=== PATIENT | male | born 1955 | race American Indian/Alaskan Native ===

== ENCOUNTER 2017-07-09 18:08 | Inpatient (IN) | payer OTHER, MEDICAID ==
[~2017-07-09] VITALS: Ht 162.6 cm; Wt 80.5 kg
[2017-07-09 21:30] VITALS: BP 114/83
[2017-07-09] MEDS ORDERED: acetaminophen 325mg tablet PO PRN (22:50)
[2017-07-09] MEDS ORDERED: magnesium hydroxide 30ml (MOM) UD suspension PO PRN (22:50)
[2017-07-09] MEDS ORDERED: mag hydrox/Alum hydrox/simeth 30ml oral suspension PO PRN (22:50)
[2017-07-09] MEDS ORDERED: ondansetron/PF 4mg/2ml inj IV PRN (22:50)
[2017-07-09 23:00] VITALS: BP 121/79
[2017-07-09] MEDS: normal saline 1000ml 1,000 ML IV SCH (23:27)
[2017-07-09] MEDS ORDERED: OMEP20CA10 PO (23:40)
[2017-07-09] MEDS ORDERED: ALBU18HF2 INH (23:40)
[2017-07-09] MEDS ORDERED: HYDR12.5 PO (23:40)
[2017-07-09] MEDS ORDERED: LISI10TA4 PO (23:40)
[2017-07-09] MEDS ORDERED: LEVO25TA7 PO (23:40)
[2017-07-10] MEDS ORDERED: HYDROmorphone 2mg/ml vial IV PRN (00:44)
[2017-07-10 03:17] VITALS: BP 114/73
[2017-07-10 06:00] VITALS: BP 112/72
[2017-07-10 06:18] LABS: BASOPHILS # (AUTO) 0.1 X10'3 (0-0.2); BASOPHILS % (AUTO) 0.4 % (0-1); EOSINOPHILS # (AUTO) 0.6 X10'3 (0-0.9); EOSINOPHILS % (AUTO) 4.7 % (0-6); HEMOGLOBIN 15.3 g/dl (14.0-17.9); LYMPHOCYTES # (AUTO) 1.7 X10'3 (1.1-4.8); LYMPHOCYTES % (AUTO) 13.9 % (21-51); MEAN CORPUSCULAR HEMOGLOBIN 31.4 PG (27.0-31.0); MEAN CORPUSCULAR HGB CONC 34.8 % (33.0-36.5); MEAN CORPUSCULAR VOLUME 90.1 FL (78-98); MEAN PLATELET VOLUME 6.2 FL (7.4-10.4); MONOCYTES # (AUTO) 1.9 X10'3 (0-0.9); MONOCYTES % (AUTO) 15.5 % (2-12); NEUTROPHILS # (AUTO) 8.2 X10'3 (1.8-7.7); NEUTROPHILS % (AUTO) 65.5 % (42-75); PLATELET COUNT 483 X10'3 (140-440); RED BLOOD COUNT 4.88 X10'6 (4.70-6.10); RED CELL DISTRIBUTION WIDTH 12.5 % (11.5-14.5); WHITE BLOOD COUNT 12.5 X10'3 (4.5-11.0)
[2017-07-10 06:33] LABS: ALANINE AMINOTRANSFERASE 20 U/L (12-78); ALBUMIN 2.5 G/DL (3.4-5.0); ALBUMIN/GLOBULIN RATIO 0.7 (1.1-1.5); ALKALINE PHOSPHATASE 87 IU/L (46-116); ASPARTATE AMINO TRANSFERASE 13 U/L (10-37); BILIRUBIN,TOTAL 0.3 MG/DL (0.1-1.0); BLOOD UREA NITROGEN 17 MG/DL (7-18); BUN/CREATININE RATIO 15.5 (5.4-32.0); CALCIUM 8.9 MG/DL (8.5-10.1); GLUCOSE 103 MG/DL (70-104); TOTAL PROTEIN 6.1 G/DL (6.4-8.2); eGFR 67 ML/MIN
[2017-07-10 07:18] LABS: ANION GAP 7 (8-16); CHLORIDE 104 MMOL/L (99-107); POTASSIUM 3.7 MMOL/L (3.5-5.1); SODIUM 138 MMOL/L (135-145)
[2017-07-10] MEDS ORDERED: heparin, porcine 5000 units/ml vial SQ SCH (08:00)
[2017-07-10] MEDS ORDERED: pneumococcal 23-VAL P-sac vacc 25 mcg/0.5ml vial IMVAC ONE (10:00)
[2017-07-10] MEDS ORDERED: FLU VACC QS2017-18 36MOS UP/PF 60 MCG/0.5 ML SYRINGE IMVAC ONE (10:00)
[2017-07-10] MEDS: normal saline 1000ml 1,000 ML IV SCH ×2 (10:53→18:46)
[2017-07-10 11:50] LABS: HEMATOCRIT 44.2 % (42.0-52.0); HEMOGLOBIN 15.4 g/dl (14.0-17.9); MEAN CORPUSCULAR HEMOGLOBIN 31.3 PG (27.0-31.0); MEAN CORPUSCULAR HGB CONC 34.8 % (33.0-36.5); MEAN CORPUSCULAR VOLUME 90.1 FL (78-98); MEAN PLATELET VOLUME 6.1 FL (7.4-10.4); PLATELET COUNT 478 X10'3 (140-440); RED BLOOD COUNT 4.91 X10'6 (4.70-6.10); RED CELL DISTRIBUTION WIDTH 12.5 % (11.5-14.5); WHITE BLOOD COUNT 12.5 X10'3 (4.5-11.0)
[2017-07-10 12:00] LABS: ALBUMIN 2.5 G/DL (3.4-5.0); ANION GAP 4 (8-16); BLOOD UREA NITROGEN 15 MG/DL (7-18); BUN/CREATININE RATIO 16.7 (5.4-32.0); CALCIUM 8.9 MG/DL (8.5-10.1); CHLORIDE 105 MMOL/L (99-107); GLUCOSE 101 MG/DL (70-104); POTASSIUM 3.8 MMOL/L (3.5-5.1); SODIUM 137 MMOL/L (135-145); TOTAL CARBON DIOXIDE 27.8 MMOL/L (24-32); eGFR 85 ML/MIN
[2017-07-10 12:01] LABS: PARTIAL THROMBOPLASTIN TIME 32 SECONDS (22-32); PROTHROMBIN TIME 10.7 SECONDS (9.0-12.0)
[2017-07-10 12:13] LABS: HEMOGLOBIN A1C 5.6 % (4.5-6.2)
[2017-07-10 12:52] LABS: CLARITY,URINE Clear (Clear); COLOR,URINE Yellow (Yellow); GLUCOSE, URINE Negative (Neg); KETONES,URINE Negative (Neg); LEUKOCYTE ESTERASE ,URINE Negative (Neg); NITRITES, URINE Negative (Neg); OCCULT BLOOD,URINE Negative (Neg); PROTEIN,URINE Negative (Neg)
[2017-07-10] MEDS ORDERED: iohexol 300mg/ml 100ml inj. ONE (12:52)
[2017-07-10 12:53] LABS: UA COLLECTION TYPE CLN CATCH MIDSTREAM
[2017-07-10] MEDS ORDERED: non-formulary drug (Albuterol Sulfate (Ventolin Hfa) 2 PUFFS) INH PRN (14:30)
[2017-07-10 14:34] VITALS: BP 113/72
[2017-07-10] MEDS ORDERED: ALBU18HF2 INH (14:34)
[2017-07-10] MEDS ORDERED: LEVO25TA2 PO (14:34)
[2017-07-10] MEDS ORDERED: OMEP20CA10 PO (14:34)
[2017-07-10] MEDS ORDERED: LISI10TA4 PO (14:34)
[2017-07-10] MEDS ORDERED: HYDR12.5 PO (14:34)
[2017-07-10] MEDS ORDERED: albuterol 2.5 MG/3 ML nebule NEB PRN (14:55)
[2017-07-10 15:00] VITALS: BP 104/67
[2017-07-10 16:46] LABS: ABG BASE EXCESS 2.4 mmol/L (-2.0-3.0); ABG HCO3 25.8 mmol/L (22.0-26.0); ABG OXYGEN SATURATION 95.4 % (95-98); ABG PCO2 (T) 36.4 mmHg (35.0-48.0); ABG PH (T) 7.469 (7.350-7.450); ABG PO2 (T) 68.1 mmHg (83-108); ALLEN'S TEST Positive; FCOHb 0.1 % (0.5-1.5); FMetHb 0.2 % (0.3-1.12); FO2Hb 95.1 % (94-100); TOTAL HEMOGLOBIN 15.6 G/dl (14.0-18.0)
[2017-07-10 19:00] VITALS: BP 118/77
[2017-07-10] MEDS: mupirocin 2% ointment 22GM NS SCH (20:00)
[2017-07-10 23:00] VITALS: BP 108/70
[2017-07-11] VITALS (17 sets, daily range): BP systolic 112–152; BP diastolic 66–95
[2017-07-11] MEDS ORDERED: cefazolin/dext.iso 2gm/50ml 50 ML IV ONE (05:00)
[2017-07-11] MEDS ORDERED: MESSAGE TO NURSING PO ONE ×5 (05:30→10:00)
[2017-07-11 05:48] LABS: BASOPHILS # (AUTO) 0.1 X10'3 (0-0.2); BASOPHILS % (AUTO) 0.7 % (0-1); EOSINOPHILS # (AUTO) 0.6 X10'3 (0-0.9); EOSINOPHILS % (AUTO) 5.6 % (0-6); HEMATOCRIT 45.1 % (42.0-52.0); HEMOGLOBIN 15.6 g/dl (14.0-17.9); LYMPHOCYTES # (AUTO) 1.9 X10'3 (1.1-4.8); LYMPHOCYTES % (AUTO) 16.2 % (21-51); MEAN CORPUSCULAR HEMOGLOBIN 31.1 PG (27.0-31.0); MEAN CORPUSCULAR HGB CONC 34.5 % (33.0-36.5); MEAN CORPUSCULAR VOLUME 90.1 FL (78-98); MEAN PLATELET VOLUME 6.2 FL (7.4-10.4); MONOCYTES # (AUTO) 1.7 X10'3 (0-0.9); MONOCYTES % (AUTO) 14.7 % (2-12); NEUTROPHILS # (AUTO) 7.3 X10'3 (1.8-7.7); NEUTROPHILS % (AUTO) 62.8 % (42-75); PLATELET COUNT 475 X10'3 (140-440); RED CELL DISTRIBUTION WIDTH 12.5 % (11.5-14.5); WHITE BLOOD COUNT 11.6 X10'3 (4.5-11.0)
[2017-07-11] MEDS ORDERED: famotidine/PF 10 mg/ml inj IV ONE (06:30)
[2017-07-11 06:39] LABS: ALANINE AMINOTRANSFERASE 24 U/L (12-78); ALBUMIN 2.5 G/DL (3.4-5.0); ALBUMIN/GLOBULIN RATIO 0.7 (1.1-1.5); ALKALINE PHOSPHATASE 84 IU/L (46-116); ANION GAP 10 (8-16); ASPARTATE AMINO TRANSFERASE 24 U/L (10-37); BILIRUBIN,TOTAL 0.4 MG/DL (0.1-1.0); BLOOD UREA NITROGEN 13 MG/DL (7-18); CHLORIDE 106 MMOL/L (99-107); GLUCOSE 95 MG/DL (70-104); POTASSIUM 3.8 MMOL/L (3.5-5.1); SODIUM 142 MMOL/L (135-145); TOTAL CARBON DIOXIDE 25.8 MMOL/L (24-32); TOTAL PROTEIN 6.2 G/DL (6.4-8.2); eGFR 75 ML/MIN
[2017-07-11] MEDS: mupirocin 2% ointment 22GM NS SCH (07:00)
[2017-07-11] MEDS ORDERED: BUPIVAcaine/PF 2.5 mg/ml (0.25%) 30ml vial ONE (07:07)
[2017-07-11] MEDS ORDERED: fentaNYL/PF 50MCG/1 ML 2ML syringe ONE ×2 (07:09→07:12)
[2017-07-11] MEDS ORDERED: midazolam 2 mg/2 ml injection ONE (07:10)
[2017-07-11] MEDS ORDERED: LIDOcaine 2% (20mg/ml) 5ml vial ONE ×2 (07:12→07:14)
[2017-07-11] MEDS ORDERED: propofol inj 20 ML IV ONE ×2 (07:12→07:14)
[2017-07-11] MEDS ORDERED: rocuronium 10mg/ml inj IV ONE (07:14)
[2017-07-11] MEDS ORDERED: ondansetron/PF 4mg/2ml inj IV PRN ×2 (07:20→09:40)
[2017-07-11] MEDS ORDERED: meperidine/PF 25mg/ml syringe IV PRN ×3 (07:20)
[2017-07-11] MEDS ORDERED: proCHLORperazine 10 MG/2 ml inj IV PRN (07:20)
[2017-07-11] MEDS ORDERED: ringers solution, lacted 1,000 ML IV SCH (07:20)
[2017-07-11] MEDS ORDERED: morphine 2 MG/ML inj. syringe IV PRN ×4 (07:20→09:40)
[2017-07-11] MEDS: pantoprazole 40mg Tablet.DR PO SCH (07:30)
[2017-07-11] MEDS ORDERED: sevoflurane 250ml liquid IH ONE (07:49)
[2017-07-11] MEDS ORDERED: non-formulary drug (Omeprazole 1 CAP) PO SCH (08:00)
[2017-07-11] MEDS: lisinopril 10 MG tablet PO SCH (08:00)
[2017-07-11] MEDS ORDERED: naloxone 0.4 mg/ml inj IV PRN (09:40)
[2017-07-11] MEDS ORDERED: magnesium hydroxide 30ml (MOM) UD suspension PO PRN (09:40)
[2017-07-11] MEDS ORDERED: albuterol 2.5 MG/3 ML nebule NEB PRN (09:40)
[2017-07-11] MEDS ORDERED: HYDROcodone/acetaminophen 10/325mg tab PO PRN (09:40)
[2017-07-11] MEDS ORDERED: metoclopramide 5 mg/ml inj IV PRN (09:40)
[2017-07-11] MEDS ORDERED: neostigmine methylsulfate 1 MG/ML 10ml vial ONE (10:18)
[2017-07-11] MEDS ORDERED: glycopyrrolate 0.2mg/ml inj ONE (10:18)
[2017-07-11] MEDS ORDERED: ondansetron/PF 4mg/2ml inj ONE (10:18)
[2017-07-11] MEDS ORDERED: dexamethasone sod phosphate 4mg/ml inj. ONE (10:18)
[2017-07-11] MEDS: HYDROchlorothiazide 12.5mg capsule PO SCH (10:52)
[2017-07-11] MEDS: levoTHYROXINE 25mcg tablet PO SCH (10:52)
[2017-07-11 11:13] LABS: BASOPHILS # (AUTO) 0.1 X10'3 (0-0.2); BASOPHILS % (AUTO) 0.6 % (0-1); EOSINOPHILS # (AUTO) 0.4 X10'3 (0-0.9); EOSINOPHILS % (AUTO) 3.6 % (0-6); HEMATOCRIT 44.5 % (42.0-52.0); HEMOGLOBIN 15.5 g/dl (14.0-17.9); LYMPHOCYTES % (AUTO) 8.9 % (21-51); MEAN CORPUSCULAR HEMOGLOBIN 31.4 PG (27.0-31.0); MEAN CORPUSCULAR HGB CONC 34.8 % (33.0-36.5); MEAN PLATELET VOLUME 5.8 FL (7.4-10.4); MONOCYTES # (AUTO) 0.7 X10'3 (0-0.9); MONOCYTES % (AUTO) 6.5 % (2-12); NEUTROPHILS # (AUTO) 8.9 X10'3 (1.8-7.7); NEUTROPHILS % (AUTO) 80.4 % (42-75); PLATELET COUNT 487 X10'3 (140-440); RED BLOOD COUNT 4.95 X10'6 (4.70-6.10); RED CELL DISTRIBUTION WIDTH 12.5 % (11.5-14.5)
[2017-07-11 11:22] LABS: ALBUMIN 2.3 G/DL (3.4-5.0); ANION GAP 9 (8-16); BLOOD UREA NITROGEN 12 MG/DL (7-18); CALCIUM 8.5 MG/DL (8.5-10.1); CHLORIDE 108 MMOL/L (99-107); GLUCOSE 112 MG/DL (70-104); POTASSIUM 4.1 MMOL/L (3.5-5.1); SODIUM 143 MMOL/L (135-145); TOTAL CARBON DIOXIDE 26.1 MMOL/L (24-32); eGFR 75 ML/MIN
[2017-07-11] MEDS: ketorolac tromethamine 15mg/ml inj. IV SCH ×2 (13:37→21:13)
[2017-07-11] MEDS: cefazolin 1gm/NS 100mL 100 ML IV SCH (15:46)
[2017-07-11] MEDS: docusate sod 100mg capsule PO SCH (21:13)
[2017-07-12] MEDS: cefazolin 1gm/NS 100mL 100 ML IV SCH (00:19)
[2017-07-12] MEDS: ketorolac tromethamine 15mg/ml inj. IV SCH ×2 (02:32→07:47)
[2017-07-12 03:00] VITALS: BP 114/78
[2017-07-12 05:02] LABS: BASOPHILS # (AUTO) 0.1 X10'3 (0-0.2); BASOPHILS % (AUTO) 0.3 % (0-1); EOSINOPHILS # (AUTO) 0.3 X10'3 (0-0.9); HEMOGLOBIN 13.4 g/dl (14.0-17.9); LYMPHOCYTES # (AUTO) 1.2 X10'3 (1.1-4.8); LYMPHOCYTES % (AUTO) 7.1 % (21-51); MEAN CORPUSCULAR HEMOGLOBIN 31.3 PG (27.0-31.0); MEAN CORPUSCULAR HGB CONC 35.4 % (33.0-36.5); MEAN CORPUSCULAR VOLUME 88.6 FL (78-98); MEAN PLATELET VOLUME 5.9 FL (7.4-10.4); MONOCYTES # (AUTO) 2.3 X10'3 (0-0.9); MONOCYTES % (AUTO) 13.6 % (2-12); NEUTROPHILS # (AUTO) 12.8 X10'3 (1.8-7.7); PLATELET COUNT 442 X10'3 (140-440); RED BLOOD COUNT 4.29 X10'6 (4.70-6.10); RED CELL DISTRIBUTION WIDTH 12.3 % (11.5-14.5); WHITE BLOOD COUNT 16.6 X10'3 (4.5-11.0)
[2017-07-12 05:21] LABS: ALANINE AMINOTRANSFERASE 27 U/L (12-78); ALBUMIN 2.1 G/DL (3.4-5.0); ALBUMIN/GLOBULIN RATIO 0.7 (1.1-1.5); ALKALINE PHOSPHATASE 72 IU/L (46-116); ANION GAP 8 (8-16); ASPARTATE AMINO TRANSFERASE 20 U/L (10-37); BILIRUBIN,TOTAL 0.3 MG/DL (0.1-1.0); BLOOD UREA NITROGEN 16 MG/DL (7-18); BUN/CREATININE RATIO 11.4 (5.4-32.0); CALCIUM 8.1 MG/DL (8.5-10.1); CHLORIDE 104 MMOL/L (99-107); GLUCOSE 114 MG/DL (70-104); POTASSIUM 3.9 MMOL/L (3.5-5.1); SODIUM 138 MMOL/L (135-145); TOTAL CARBON DIOXIDE 26.5 MMOL/L (24-32); TOTAL PROTEIN 5.3 G/DL (6.4-8.2); eGFR 51 ML/MIN
[2017-07-12 06:00] VITALS: BP 115/71
[2017-07-12] MEDS: lisinopril 10 MG tablet PO SCH (07:47)
[2017-07-12] MEDS: docusate sod 100mg capsule PO SCH ×2 (07:48→20:00)
[2017-07-12] MEDS: pantoprazole 40mg Tablet.DR PO SCH (07:48)
[2017-07-12] MEDS: HYDROchlorothiazide 12.5mg capsule PO SCH (07:48)
[2017-07-12] MEDS: levoTHYROXINE 25mcg tablet PO SCH (07:48)
[2017-07-12] MEDS ORDERED: CefTRIAXone/D5W-Rocephin 1gm 50 ML IV SCH (08:00)
[2017-07-12] MEDS: normal saline 1000ml 1,000 ML IV SCH ×2 (09:33→17:50)
[2017-07-12] MEDS ORDERED: HYDROcodone/acetaminophen 5mg/325mg tablet PO PRN (10:05)
[2017-07-12 10:40] LABS: ALBUMIN 2.3 G/DL (3.4-5.0); ANION GAP 7 (8-16); BLOOD UREA NITROGEN 16 MG/DL (7-18); BUN/CREATININE RATIO 13.3 (5.4-32.0); CALCIUM 8.7 MG/DL (8.5-10.1); CHLORIDE 104 MMOL/L (99-107); GLUCOSE 107 MG/DL (70-104); SODIUM 139 MMOL/L (135-145); TOTAL CARBON DIOXIDE 27.9 MMOL/L (24-32); eGFR 61 ML/MIN
[2017-07-12 11:00] VITALS: BP 106/66
[2017-07-12] MEDS: cefTRIAXone 1g/NS 100ml IVPB 100 ML IV SCH (11:13)
[2017-07-12] MEDS: HYDROcodone/acetaminophen 10/325mg tab PO PRN (16:00)
[2017-07-12] MEDS: lactobacillus rhamnosus 10,000 MMU CELLS/CAPSULE PO SCH (17:47)
[2017-07-12 19:00] VITALS: BP 114/77
[2017-07-12 23:00] VITALS: BP 103/70
[2017-07-13] MEDS: HYDROcodone/acetaminophen 10/325mg tab PO PRN (02:32)
[2017-07-13] MEDS: normal saline 1000ml 1,000 ML IV SCH ×3 (02:33→22:38)
[2017-07-13 03:42] VITALS: BP 137/95
[2017-07-13 05:46] LABS: BASOPHILS # (AUTO) 0.1 X10'3 (0-0.2); BASOPHILS % (AUTO) 0.6 % (0-1); EOSINOPHILS # (AUTO) 0.5 X10'3 (0-0.9); EOSINOPHILS % (AUTO) 3.9 % (0-6); HEMATOCRIT 40.4 % (42.0-52.0); HEMOGLOBIN 14.2 g/dl (14.0-17.9); LYMPHOCYTES # (AUTO) 1.2 X10'3 (1.1-4.8); LYMPHOCYTES % (AUTO) 9.5 % (21-51); MEAN CORPUSCULAR HEMOGLOBIN 31.4 PG (27.0-31.0); MEAN CORPUSCULAR HGB CONC 35.1 % (33.0-36.5); MEAN CORPUSCULAR VOLUME 89.6 FL (78-98); MEAN PLATELET VOLUME 6.3 FL (7.4-10.4); NEUTROPHILS # (AUTO) 9.3 X10'3 (1.8-7.7); PLATELET COUNT 431 X10'3 (140-440); RED BLOOD COUNT 4.51 X10'6 (4.70-6.10); RED CELL DISTRIBUTION WIDTH 12.5 % (11.5-14.5); WHITE BLOOD COUNT 13.1 X10'3 (4.5-11.0)
[2017-07-13 05:52] LABS: ALANINE AMINOTRANSFERASE 33 U/L (12-78); ALBUMIN 2.2 G/DL (3.4-5.0); ALBUMIN/GLOBULIN RATIO 0.7 (1.1-1.5); ALKALINE PHOSPHATASE 77 IU/L (46-116); ANION GAP 7 (8-16); ASPARTATE AMINO TRANSFERASE 26 U/L (10-37); BILIRUBIN,TOTAL 0.3 MG/DL (0.1-1.0); BLOOD UREA NITROGEN 16 MG/DL (7-18); BUN/CREATININE RATIO 14.5 (5.4-32.0); CALCIUM 8.5 MG/DL (8.5-10.1); CHLORIDE 107 MMOL/L (99-107); GLUCOSE 103 MG/DL (70-104); POTASSIUM 4.2 MMOL/L (3.5-5.1); SODIUM 142 MMOL/L (135-145); TOTAL CARBON DIOXIDE 27.9 MMOL/L (24-32); TOTAL PROTEIN 5.5 G/DL (6.4-8.2); eGFR 67 ML/MIN
[2017-07-13 07:00] VITALS: BP 122/87
[2017-07-13] MEDS: cefTRIAXone 1g/NS 100ml IVPB 100 ML IV SCH (08:38)
[2017-07-13] MEDS: lisinopril 10 MG tablet PO SCH (08:38)
[2017-07-13] MEDS: pantoprazole 40mg Tablet.DR PO SCH (08:39)
[2017-07-13] MEDS: levoTHYROXINE 25mcg tablet PO SCH (08:39)
[2017-07-13] MEDS: lactobacillus rhamnosus 10,000 MMU CELLS/CAPSULE PO SCH ×2 (08:39→17:27)
[2017-07-13] MEDS: docusate sod 100mg capsule PO SCH ×2 (08:42→19:59)
[2017-07-13] MEDS ORDERED: FLU VACC QS2017-18 36MOS UP/PF 60 MCG/0.5 ML SYRINGE IMVAC ONE (10:00)
[2017-07-13] MEDS ORDERED: pneumococcal 23-VAL P-sac vacc 25 mcg/0.5ml vial IMVAC ONE (10:00)
[2017-07-13 11:00] VITALS: BP 121/81
[2017-07-13 15:00] VITALS: BP 130/84
[2017-07-13 18:30] VITALS: BP 147/88
[2017-07-13 22:00] VITALS: BP 149/95
[2017-07-14] VITALS (7 sets, daily range): BP systolic 132–150; BP diastolic 83–98
[2017-07-14 06:53] LABS: BASOPHILS # (AUTO) 0.1 X10'3 (0-0.2); BASOPHILS % (AUTO) 0.6 % (0-1); EOSINOPHILS # (AUTO) 0.5 X10'3 (0-0.9); EOSINOPHILS % (AUTO) 3.7 % (0-6); HEMATOCRIT 44.5 % (42.0-52.0); HEMOGLOBIN 15.5 g/dl (14.0-17.9); LYMPHOCYTES # (AUTO) 1.6 X10'3 (1.1-4.8); LYMPHOCYTES % (AUTO) 11.9 % (21-51); MEAN CORPUSCULAR HEMOGLOBIN 31.3 PG (27.0-31.0); MEAN CORPUSCULAR HGB CONC 34.9 % (33.0-36.5); MEAN CORPUSCULAR VOLUME 89.8 FL (78-98); MONOCYTES # (AUTO) 2.1 X10'3 (0-0.9); MONOCYTES % (AUTO) 15.3 % (2-12); NEUTROPHILS # (AUTO) 9.3 X10'3 (1.8-7.7); NEUTROPHILS % (AUTO) 68.5 % (42-75); PLATELET COUNT 506 X10'3 (140-440); RED BLOOD COUNT 4.95 X10'6 (4.70-6.10); RED CELL DISTRIBUTION WIDTH 12.3 % (11.5-14.5); WHITE BLOOD COUNT 13.6 X10'3 (4.5-11.0)
[2017-07-14 07:11] LABS: ALANINE AMINOTRANSFERASE 34 U/L (12-78); ALBUMIN 2.5 G/DL (3.4-5.0); ALBUMIN/GLOBULIN RATIO 0.7 (1.1-1.5); ALKALINE PHOSPHATASE 89 IU/L (46-116); ANION GAP 4 (8-16); ASPARTATE AMINO TRANSFERASE 25 U/L (10-37); BILIRUBIN,TOTAL 0.4 MG/DL (0.1-1.0); BLOOD UREA NITROGEN 9 MG/DL (7-18); BUN/CREATININE RATIO 8.2 (5.4-32.0); CALCIUM 8.7 MG/DL (8.5-10.1); CHLORIDE 107 MMOL/L (99-107); GLUCOSE 101 MG/DL (70-104); POTASSIUM 3.8 MMOL/L (3.5-5.1); SODIUM 141 MMOL/L (135-145); TOTAL PROTEIN 6.3 G/DL (6.4-8.2); eGFR 67 ML/MIN
[2017-07-14] MEDS: pantoprazole 40mg Tablet.DR PO SCH (08:11)
[2017-07-14] MEDS: docusate sod 100mg capsule PO SCH ×2 (08:11→19:35)
[2017-07-14] MEDS: levoTHYROXINE 25mcg tablet PO SCH (08:11)
[2017-07-14] MEDS: lactobacillus rhamnosus 10,000 MMU CELLS/CAPSULE PO SCH ×2 (08:11→17:22)
[2017-07-14] MEDS: lisinopril 10 MG tablet PO SCH (08:12)
[2017-07-14] MEDS: cefTRIAXone 1g/NS 100ml IVPB 100 ML IV SCH (08:14)
[2017-07-14] MEDS: normal saline 1000ml 1,000 ML IV SCH ×3 (08:14→22:20)
[2017-07-15] VITALS (7 sets, daily range): BP systolic 108–153; BP diastolic 73–107
[2017-07-15 05:27] LABS: BASOPHILS # (AUTO) 0.1 X10'3 (0-0.2); BASOPHILS % (AUTO) 0.4 % (0-1); EOSINOPHILS # (AUTO) 0.6 X10'3 (0-0.9); EOSINOPHILS % (AUTO) 4.3 % (0-6); HEMATOCRIT 41.9 % (42.0-52.0); HEMOGLOBIN 14.8 g/dl (14.0-17.9); LYMPHOCYTES # (AUTO) 1.5 X10'3 (1.1-4.8); LYMPHOCYTES % (AUTO) 9.9 % (21-51); MEAN CORPUSCULAR HEMOGLOBIN 31.6 PG (27.0-31.0); MEAN CORPUSCULAR HGB CONC 35.3 % (33.0-36.5); MEAN CORPUSCULAR VOLUME 89.4 FL (78-98); MEAN PLATELET VOLUME 6.4 FL (7.4-10.4); MONOCYTES # (AUTO) 2.2 X10'3 (0-0.9); MONOCYTES % (AUTO) 14.7 % (2-12); NEUTROPHILS # (AUTO) 10.4 X10'3 (1.8-7.7); NEUTROPHILS % (AUTO) 70.7 % (42-75); PLATELET COUNT 491 X10'3 (140-440); RED BLOOD COUNT 4.69 X10'6 (4.70-6.10); RED CELL DISTRIBUTION WIDTH 12.6 % (11.5-14.5); WHITE BLOOD COUNT 14.8 X10'3 (4.5-11.0)
[2017-07-15 05:32] LABS: ALANINE AMINOTRANSFERASE 36 U/L (12-78); ALBUMIN 2.3 G/DL (3.4-5.0); ALBUMIN/GLOBULIN RATIO 0.6 (1.1-1.5); ALKALINE PHOSPHATASE 88 IU/L (46-116); ANION GAP 9 (8-16); ASPARTATE AMINO TRANSFERASE 24 U/L (10-37); BILIRUBIN,TOTAL 0.3 MG/DL (0.1-1.0); BLOOD UREA NITROGEN 12 MG/DL (7-18); CALCIUM 8.7 MG/DL (8.5-10.1); CHLORIDE 108 MMOL/L (99-107); GLUCOSE 108 MG/DL (70-104); POTASSIUM 4.1 MMOL/L (3.5-5.1); SODIUM 141 MMOL/L (135-145); TOTAL CARBON DIOXIDE 24.5 MMOL/L (24-32); TOTAL PROTEIN 5.9 G/DL (6.4-8.2); eGFR 75 ML/MIN
[2017-07-15] MEDS: lisinopril 10 MG tablet PO SCH (07:38)
[2017-07-15] MEDS: docusate sod 100mg capsule PO SCH ×2 (07:38→20:00)
[2017-07-15] MEDS: pantoprazole 40mg Tablet.DR PO SCH (07:38)
[2017-07-15] MEDS: levoTHYROXINE 25mcg tablet PO SCH (07:38)
[2017-07-15] MEDS: lactobacillus rhamnosus 10,000 MMU CELLS/CAPSULE PO SCH ×2 (07:39→16:37)
[2017-07-15] MEDS: cefTRIAXone 1g/NS 100ml IVPB 100 ML IV SCH (07:40)
[2017-07-15] MEDS: normal saline 1000ml 1,000 ML IV SCH ×2 (07:40→20:35)
[2017-07-16 03:00] VITALS: BP 120/81
[2017-07-16] MEDS: normal saline 1000ml 1,000 ML IV SCH (04:58)
[2017-07-16 05:06] LABS: BASOPHILS # (AUTO) 0.1 X10'3 (0-0.2); BASOPHILS % (AUTO) 0.5 % (0-1); EOSINOPHILS # (AUTO) 0.7 X10'3 (0-0.9); EOSINOPHILS % (AUTO) 4.7 % (0-6); HEMATOCRIT 41.5 % (42.0-52.0); HEMOGLOBIN 14.5 g/dl (14.0-17.9); LYMPHOCYTES # (AUTO) 1.4 X10'3 (1.1-4.8); MEAN CORPUSCULAR HEMOGLOBIN 31.3 PG (27.0-31.0); MEAN CORPUSCULAR VOLUME 89.5 FL (78-98); MEAN PLATELET VOLUME 6.3 FL (7.4-10.4); MONOCYTES # (AUTO) 2.1 X10'3 (0-0.9); MONOCYTES % (AUTO) 15.2 % (2-12); NEUTROPHILS # (AUTO) 9.7 X10'3 (1.8-7.7); NEUTROPHILS % (AUTO) 69.6 % (42-75); PLATELET COUNT 525 X10'3 (140-440); RED BLOOD COUNT 4.63 X10'6 (4.70-6.10); RED CELL DISTRIBUTION WIDTH 12.2 % (11.5-14.5)
[2017-07-16 05:36] LABS: ALANINE AMINOTRANSFERASE 30 U/L (12-78); ALBUMIN 2.3 G/DL (3.4-5.0); ALBUMIN/GLOBULIN RATIO 0.6 (1.1-1.5); ALKALINE PHOSPHATASE 97 IU/L (46-116); ANION GAP 9 (8-16); ASPARTATE AMINO TRANSFERASE 21 U/L (10-37); BILIRUBIN,TOTAL 0.3 MG/DL (0.1-1.0); BLOOD UREA NITROGEN 12 MG/DL (7-18); BUN/CREATININE RATIO 13.3 (5.4-32.0); CALCIUM 8.5 MG/DL (8.5-10.1); CHLORIDE 108 MMOL/L (99-107); GLUCOSE 102 MG/DL (70-104); SODIUM 142 MMOL/L (135-145); TOTAL CARBON DIOXIDE 25.3 MMOL/L (24-32); eGFR 85 ML/MIN
[2017-07-16 06:00] VITALS: BP 135/91
[2017-07-16] MEDS: docusate sod 100mg capsule PO SCH (08:00)
[2017-07-16] MEDS: lactobacillus rhamnosus 10,000 MMU CELLS/CAPSULE PO SCH (08:15)
[2017-07-16] MEDS: pantoprazole 40mg Tablet.DR PO SCH (08:17)
[2017-07-16] MEDS: cefTRIAXone 1g/NS 100ml IVPB 100 ML IV SCH (08:18)
[2017-07-16] MEDS: levoTHYROXINE 25mcg tablet PO SCH (08:22)
[2017-07-16] MEDS: lisinopril 10 MG tablet PO SCH (08:22)
[2017-07-16] MEDS ORDERED: AMOX-580 PO (10:50)
[2017-07-16 11:00] VITALS: BP 117/69
[2017-07-16] MEDS ORDERED: CefTRIAXone 1 gm/50ml D5W ADV 50 ML IV SCH (12:22)
== END 2017-07-16 13:05 | disposition home or self-care (01) | DRG 166 ==
LOC: PCU 3S 21:20
PROVIDERS: ADMIT Family Medicine; ATTEND Family Medicine
PROC: BW251ZZ Computerized Tomography (CT Scan) of Chest, Abdomen and Pelvis using Low Osmolar Contrast (ICD-10-PCS; 2017-07-10)
PROC: 3E0L4GC Introduction of Other Therapeutic Substance into Pleural Cavity, Percutaneous Endoscopic Approach (ICD-10-PCS; 2017-07-11)
PROC: 0W9940Z Drainage of Right Pleural Cavity with Drainage Device, Percutaneous Endoscopic Approach (ICD-10-PCS; 2017-07-11)
PROC: 0BJ08ZZ Inspection of Tracheobronchial Tree, Via Natural or Artificial Opening Endoscopic (ICD-10-PCS; 2017-07-11)
PROC: 0BPQX0Z Removal of Drainage Device from Pleura, External Approach (ICD-10-PCS; 2017-07-11)
PROC: 0BBN4ZX Excision of Right Pleura, Percutaneous Endoscopic Approach, Diagnostic (ICD-10-PCS; principal; 2017-07-11 07:47)
PROC: 0W993ZZ Drainage of Right Pleural Cavity, Percutaneous Approach (ICD-10-PCS; 2017-07-15)
DX: C45.0 Mesothelioma of pleura (principal); E43 Unspecified severe protein-calorie malnutrition; J91.0 Malignant pleural effusion; J93.9 Pneumothorax, unspecified; Z77.090 Contact with and (suspected) exposure to asbestos; E03.9 Hypothyroidism, unspecified; K21.0 Gastro-esophageal reflux disease with esophagitis; I10 Essential (primary) hypertension; K22.70 Barrett's esophagus without dysplasia; Z79.899 Other long term (current) drug therapy; Z98.52 Vasectomy status; Z68.30 Body mass index [BMI] 30.0-30.9, adult
CPT/HCPCS: 32555; 36415; 36600; 71045; 71046; 71260; 74177; 80048; 80053; 81003; 82803; 82948; 83036; 84145; 84443; 85018; 85025; 85027; 85610; 85651; 85730; 86885; 86900; 86901; 86920; 87040; 87070; 87075; 87102; 87176; 90732; 94010; 97116; 97161; 97530; A6212; A6222; A6251; A6255; A6257; A6258; A6402; A6449; A7000; A7048; C1758; J0690; J0696; J1100; J1644; J1885; J2001; J2175; J2250; J2405; J2704; J2710; J3010; J3490; J7030; J7120; Q2037; Q9967